=== PATIENT | female | born 1980 | race Caucasian/White ===

== ENCOUNTER 2022-05-02 16:19 | Emergency (ER) | payer MEDICAID ==
[2022-05-02 16:35] VITALS: BP 128/71
--- OUTSIDE RECORDS SUMMARY | 2022-05-02 16:54 | EXTERNAL MEDICAL SUMMARY RPT | Continuity of Care Document ---
:1980 Author Organization [place] Address [address] [place] [address] Phone Care Team Providers Name Role Phone Lexi Bueno Unavailable Unavailable Allergies No information. Encounters No information. Functional Status No information. Immunizations No information. Medications date description facility 2022-04-13 00:[address] [facility] 2022-04-13 00:[address] [facility] 2022-04-[address] [facility] 2022-04-13 00:[address] [facility] Problems date description facility 2022-04-13 00:00 Herpes simplex type [address] [facility] Procedures No information. Results/Labs test date author facility value unit interpret ation Result panel 1 (unknown) (no (unknown) (unknown) (no value) (units (unk nown) date) unknown) (unknown) (no (unknown) (unknown) 04/13/22 (units (unkno wn) date) unknown) (unknown) (no (unknown) (unknown) [id number] (units (unkno wn) date) unknown) (unknown) (no (unknown) (unknown) 42 year old (units (un known) date) female presents to unknown) clinic for medication review. (unknown) (no (unknown) (unknown) Age/Sex: 42 / F (units (unknown) date) Date of Service: unknown) (unknown) (no (unknown) (unknown) Allergies (units (unkn own) date) unknown) (unknown) (no (unknown) (unknown) [place], [place] (units ( unknown) date) [id number] unknown) (unknown) (no (unknown) (unknown) Anxiety (units (unkno wn) date) unknown) (unknown) (no (unknown) (unknown) Attending Dr: Angel (units (unknown) date) Jose Chen unknown) (unknown) (no (unknown) (unknown) BMI (units (unkno wn) date) 31.0-31.9,adult unknown) (unknown) (no (unknown) (unknown) Bronchitis (units (unk nown) date) unknown) (unknown) (no (unknown) (unknown) Bunion of great (units (unknown) date) toe unknown) (unknown) (no (unknown) (unknown) Cancer (units (unkno wn) date) unknown) (unknown) (no (unknown) (unknown) : 1980 (units (unknown) date) Acct:[id number] unknown) (unknown) (no (unknown) (unknown) Depression (units (unk nown) date) unknown) (unknown) (no (unknown) (unknown) Dept at (units (unkno wn) date) . unknown) (unknown) (no (unknown) (unknown) Documented By: (units (unknown) date) Angel Garcia unknown) 04/13/22 0751 (unknown) (no (unknown) (unknown) Draft (units (unkno wn) date) unknown) (unknown) (no (unknown) (unknown) Ectopic (units (unknown) date) () unknown) (unknown) (no (unknown) (unknown) Family History (units (unknown) date) (Reviewed 12/11/21 unknown) @ 16:19 by Deng Bowens DO) (unknown) (no (unknown) (unknown) Family Practice (units (unknown) date) Office Visit unknown) (unknown) (no (unknown) (unknown) Father Skin (units (un known) date) cancer unknown) (unknown) (no (unknown) (unknown) [facility] ([facility] unknown) (unknown) (no (unknown) (unknown) Grandfather (units (un known) date) Acute unknown) alcohol intoxication with alcoholism (unknown) (no (unknown) (unknown) Grandfather No (units (unknown) date) problems noted. unknown) (unknown) (no (unknown) (unknown) Grandmother (units (un known) date) unknown) Alzheimer's dementia (unknown) (no (unknown) (unknown) Grandmother No (units (unknown) date) problems noted. unknown) (unknown) (no (unknown) (unknown) Health Management (units (unknown) date) reviewed with unknown) patient: Yes (unknown) (no (unknown) (unknown) Health Management (units (unknown) date) unknown) (unknown) (no (unknown) (unknown) Herpes (2017) (units ( unknown) date) unknown) (unknown) (no (unknown) (unknown) Insomnia (units (unkno wn) date) unknown) (unknown) (no (unknown) (unknown) Intake Note: (units (u nknown) date) unknown) (unknown) (no (unknown) (unknown) Intake performed (units (unknown) date) by: Delia Dela Cruz unknown) (unknown) (no (unknown) (unknown) Intake (units (unkno wn) date) unknown) (unknown) (no (unknown) (unknown) Intake- Clincial (units (unknown) date) Staff unknown) (unknown) (no (unknown) (unknown) Kidney stones (units ( unknown) date) unknown) (unknown) (no (unknown) (unknown) 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) (unknown) (no (unknown) (unknown) [facility]: [facility] (units (unkno wn) date) unknown) (unknown) (no (unknown) (unknown) Medical History (units (unknown) date) (Reviewed 12/11/21 unknown) @ 16:19 by Deng Bowens DO) (unknown) (no (unknown) (unknown) Mother Age: 68 (units (unknown) date) Heart disease unknown) (unknown) (no (unknown) (unknown) Myocardial (units (unk nown) date) infarction unknown) (unknown) (no (unknown) (unknown) 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) (unknown) (no (unknown) (unknown) PFSH (units (unkno wn) date) unknown) (unknown) (no (unknown) (unknown) PTSD (units (unkno wn) date) (post-traumatic unknown) stress disorder) (unknown) (no (unknown) (unknown) Pain of right (units ( unknown) date) great toe unknown) (unknown) (no (unknown) (unknown) Patient: (units (unkno wn) date) Karla Sanon unknown) MR#: [id number] (unknown) (no (unknown) (unknown) Pneumonia (units (unkn own) date) unknown) (unknown) (no (unknown) (unknown) Reason For Visit (units (unknown) date) unknown) (unknown) (no (unknown) (unknown) Right hip pain (units (unknown) date) unknown) (unknown) (no (unknown) (unknown) Rosacea (1998) (units (unknown) date) unknown) (unknown) (no (unknown) (unknown) Seizures (units (unkno wn) date) unknown) (unknown) (no (unknown) (unknown) Signed By: (units (unk nown) date) unknown) (unknown) (no (unknown) (unknown) Sister No (units (unkn own) date) problems noted. unknown) (unknown) (no (unknown) (unknown) Smoking Status: (units (unknown) date) Never smoker unknown) (unknown) (no (unknown) (unknown) Sneezing and (units (u nknown) date) itchy eyes unknown) (unknown) (no (unknown) (unknown) Social History (units (unknown) date) unknown) (unknown) (no (unknown) (unknown) Surgical History (units (unknown) date) (Reviewed 12/11/21 unknown) @ 16:19 by Deng Bowens DO) (unknown) (no (unknown) (unknown) Tachycardia (units (un known) date) unknown) (unknown) (no (unknown) (unknown) This note may (units ( unknown) date) have been all or unknown) partially generated using voice recognition (unknown) (no (unknown) (unknown) Tobacco + (units (unkn own) date) Substance Use unknown) (unknown) (no (unknown) (unknown) Tobacco Status (units (unknown) date) unknown) (unknown) (no (unknown) (unknown) Traumatic brain (units (unknown) date) injury unknown) (unknown) (no (unknown) (unknown) Unconscious (units (un known) date) unknown) (unknown) (no (unknown) (unknown) Vaginal delivery (units (unknown) date) (09/19/19) unknown) (unknown) (no (unknown) (unknown) Visit Reasons: Rx (units (unknown) date) Review-*perterson unknown) pt (unknown) (no (unknown) (unknown) Vomit (units (unkno wn) date) unknown) (unknown) (no (unknown) (unknown) [place] teeth (units (u nknown) date) removed unknown) (unknown) (no (unknown) (unknown) alcohol intake: (units (unknown) date) former unknown) (unknown) (no (unknown) (unknown) aspirin Adverse (units (unknown) date) Reaction (Verified unknown) 04/13/22 07:51) (unknown) (no (unknown) (unknown) cat dander (units (unk nown) date) Allergy unknown) (Intermediate, Verified 04/13/22 07:51) (unknown) (no (unknown) (unknown) have occurred. If (units (unknown) date) there are any unknown) questions, please contact the Medical Records (unknown) (no (unknown) (unknown) household (units (unkn own) date) members: spouse unknown) and children (unknown) (no (unknown) (unknown) latex [LATEX] (units ( unknown) date) Allergy unknown) (Intermediate, Verified 04/13/22 07:51) (unknown) (no (unknown) (unknown) marital status: (units (unknown) date) unmarried,living unknown) together (unknown) (no (unknown) (unknown) may occur. (units (unk nown) date) Occasional unknown) wrong-word or 'sound-alike' substitutions may have (unknown) (no (unknown) (unknown) nalbuphine [From (units (unknown) date) Nubain] Allergy unknown) (Severe, Verified 04/13/22 07:51) (unknown) (no (unknown) (unknown) number of (units (unkn own) date) children: 5 unknown) (unknown) (no (unknown) (unknown) occupational (units (u nknown) date) status: employed unknown) (unknown) (no (unknown) (unknown) occurred due to (units (unknown) date) the inherent unknown) limitations of voice recognition software. Please (unknown) (no (unknown) (unknown) rash (units (unkno wn) date) unknown) (unknown) (no (unknown) (unknown) read the note (units ( unknown) date) carefully and unknown) recognize, using context, where these substitutions (unknown) (no (unknown) (unknown) second hand (units (un known) date) exposure: No unknown) (unknown) (no (unknown) (unknown) software. 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 (unknown) (no (unknown) (unknown) Age/Sex: 42 / F (units (unknown) date) Date of Service: unknown) (unknown) (no (unknown) (unknown) Allergies (units (unkn own) date) unknown) (unknown) (no (unknown) (unknown) [place], [place] (units ( unknown) date) [id number] unknown) (unknown) (no (unknown) (unknown) Anxiety (units (unkno wn) date) unknown) (unknown) (no (unknown) (unknown) Assessment + Plan (units (unknown) date) unknown) (unknown) (no (unknown) (unknown) Attending Dr: Angel (units (unknown) date) Jose Wolf.Dave unknown) (unknown) (no (unknown) (unknown) BMI (units (unkno wn) date) 31.0-31.9,adult unknown) (unknown) (no (unknown) (unknown) BP 106/68 (units (unkn own) date) unknown) (unknown) (no (unknown) (unknown) Blood Pressure (units (unknown) date) Location Rt radial unknown) (unknown) (no (unknown) (unknown) Bronchitis (units (unk nown) date) unknown) (unknown) (no (unknown) (unknown) Bunion of great (units (unknown) date) toe unknown) (unknown) (no (unknown) (unknown) Cancer (units (unkno wn) date) unknown) (unknown) (no (unknown) (unknown) Chief Complaint: (units (unknown) date) med refill unknown) (unknown) (no (unknown) (unknown) : 1980 (units (unknown) date) Acct:[id number] unknown) (unknown) (no (unknown) (unknown) Depression (units (unk nown) date) unknown) (unknown) (no (unknown) (unknown) Dept at (units (unkno wn) date) . unknown) (unknown) (no (unknown) (unknown) Discontinued (units (u nknown) date) Reason: Patient no unknown) longer taking 500 mg PO BID 30 tabs 0RF (unknown) (no (unknown) (unknown) Discontinued (units (u nknown) date) unknown) (unknown) (no (unknown) (unknown) Documented By: (units (unknown) date) Angel Garcia unknown) 04/13/22 0751 (unknown) (no (unknown) (unknown) Draft (units (unkno wn) date) unknown) (unknown) (no (unknown) (unknown) Ectopic (units (unknown) date) () unknown) (unknown) (no (unknown) (unknown) Family History (units (unknown) date) (Reviewed 12/11/21 unknown) @ 16:19 by Deng Bowens DO) (unknown) (no (unknown) (unknown) Family Practice (units (unknown) date) Office Visit unknown) (unknown) (no (unknown) (unknown) Father Skin (units (un known) date) cancer unknown) (unknown) (no (unknown) (unknown) [facility] ([facility] unknown) (unknown) (no (unknown) (unknown) Grandfather (units (un known) date) Acute unknown) alcohol intoxication with alcoholism (unknown) (no (unknown) (unknown) Grandfather No (units (unknown) date) problems noted. unknown) (unknown) (no (unknown) (unknown) Grandmother (units (un known) date) unknown) Alzheimer's dementia (unknown) (no (unknown) (unknown) Grandmother No (units (unknown) date) problems noted. unknown) (unknown) (no (unknown) (unknown) Health Management (units (unknown) date) reviewed with unknown) patient: Yes (unknown) (no (unknown) (unknown) Health Management (units (unknown) date) unknown) (unknown) (no (unknown) (unknown) Herpes (2017) (units ( unknown) date) unknown) (unknown) (no (unknown) (unknown) Insomnia (units (unkno wn) date) unknown) (unknown) (no (unknown) (unknown) Intake Note: (units (u nknown) date) unknown) (unknown) (no (unknown) (unknown) Intake performed (units (unknown) date) by: Delia Dela Cruz unknown) (unknown) (no (unknown) (unknown) Intake (units (unkno wn) date) unknown) (unknown) (no (unknown) (unknown) Intake- Clincial (units (unknown) date) Staff unknown) (unknown) (no (unknown) (unknown) Kidney stones (units ( unknown) date) unknown) (unknown) (no (unknown) (unknown) 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) (unknown) (no (unknown) (unknown) Loc: [facility] (units (unkno wn) date) unknown) (unknown) (no (unknown) (unknown) Medical History (units (unknown) date) (Reviewed 12/11/21 unknown) @ 16:19 by Deng Bowens DO) (unknown) (no (unknown) (unknown) Medications (units (un known) date) unknown) (unknown) (no (unknown) (unknown) Medications: (units (u nknown) date) unknown) (unknown) (no (unknown) (unknown) Mother Age: 68 (units (unknown) date) Heart disease unknown) (unknown) (no (unknown) (unknown) Myocardial (units (unk nown) date) infarction unknown) (unknown) (no (unknown) (unknown) Notes (units (unkno wn) date) unknown) (unknown) (no (unknown) (unknown) 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) (unknown) (no (unknown) (unknown) Oxygen Delivery (units (unknown) date) Method room air unknown) (unknown) (no (unknown) (unknown) PFSH (units (unkno wn) date) unknown) (unknown) (no (unknown) (unknown) PTSD (units (unkno wn) date) (post-traumatic unknown) stress disorder) (unknown) (no (unknown) (unknown) Pain of right (units ( unknown) date) great toe unknown) (unknown) (no (unknown) (unknown) Patient: (units (unkno wn) date) Karla Sanon unknown) MR#: [id number] (unknown) (no (unknown) (unknown) Pneumonia (units (unkn own) date) unknown) (unknown) (no (unknown) (unknown) Position Sitting (units (unknown) date) unknown) (unknown) (no (unknown) (unknown) Pulse 80 (units (unkno wn) date) unknown) (unknown) (no (unknown) (unknown) Pulse Oximetry (units (unknown) date) (%) 99 unknown) (unknown) (no (unknown) (unknown) Pulse Source (units (u nknown) date) Monitor unknown) (unknown) (no (unknown) (unknown) Reason For Visit (units (unknown) date) unknown) (unknown) (no (unknown) (unknown) Right hip pain (units (unknown) date) unknown) (unknown) (no (unknown) (unknown) Rosacea (1998) (units (unknown) date) unknown) (unknown) (no (unknown) (unknown) Seizures (units (unkno wn) date) unknown) (unknown) (no (unknown) (unknown) Signed By: (units (unk nown) date) unknown) (unknown) (no (unknown) (unknown) Sister No (units (unkn own) date) problems noted. unknown) (unknown) (no (unknown) (unknown) Smoking Status: (units (unknown) date) Never smoker unknown) (unknown) (no (unknown) (unknown) Sneezing and (units (u nknown) date) itchy eyes unknown) (unknown) (no (unknown) (unknown) Social History (units (unknown) date) unknown) (unknown) (no (unknown) (unknown) Surgical History (units (unknown) date) (Reviewed 12/11/21 unknown) @ 16:19 by Deng Bowens DO) (unknown) (no (unknown) (unknown) Tachycardia (units (un known) date) unknown) (unknown) (no (unknown) (unknown) Temp 97.4 F L (units ( unknown) date) unknown) (unknown) (no (unknown) (unknown) Temp Source (units (un known) date) Temporal Artery unknown) Scan (unknown) (no (unknown) (unknown) This note may (units ( unknown) date) have been all or unknown) partially generated using voice recognition (unknown) (no (unknown) (unknown) Tobacco + (units (unkn own) date) Substance Use unknown) (unknown) (no (unknown) (unknown) Tobacco Status (units (unknown) date) unknown) (unknown) (no (unknown) (unknown) Traumatic brain (units (unknown) date) injury unknown) (unknown) (no (unknown) (unknown) Unconscious (units (un known) date) unknown) (unknown) (no (unknown) (unknown) Vaginal delivery (units (unknown) date) (09/19/19) unknown) (unknown) (no (unknown) (unknown) Visit Reasons: Rx (units (unknown) date) Review-*perterson unknown) pt (unknown) (no (unknown) (unknown) Vitals (units (unkno wn) date) unknown) (unknown) (no (unknown) (unknown) Vomit (units (unkno wn) date) unknown) (unknown) (no (unknown) (unknown) Weight 212 lb (units ( unknown) date) unknown) (unknown) (no (unknown) (unknown) [place] teeth (units (u nknown) date) removed unknown) (unknown) (no (unknown) (unknown) acyclovir 400 mg (units (unknown) date) tablet 400 mg PO unknown) BID 04/13/22 [History Confirmed 04/13/22] (unknown) (no (unknown) (unknown) alcohol intake: (units (unknown) date) former unknown) (unknown) (no (unknown) (unknown) aspirin Adverse (units (unknown) date) Reaction (Verified unknown) 04/13/22 07:51) (unknown) (no (unknown) (unknown) cat dander (units (unk nown) date) Allergy unknown) (Intermediate, Verified 04/13/22 07:51) (unknown) (no (unknown) (unknown) have occurred. If (units (unknown) date) there are any unknown) questions, please contact the Medical Records (unknown) (no (unknown) (unknown) household (units (unkn own) date) members: spouse unknown) and children (unknown) (no (unknown) (unknown) latex [LATEX] (units ( unknown) date) Allergy unknown) (Intermediate, Verified 04/13/22 07:51) (unknown) (no (unknown) (unknown) lorazepam 1 mg (units (unknown) date) tablet 1 mg PO unknown) DAILY PRN 04/13/22 [History Confirmed 04/13/22] (unknown) (no (unknown) (unknown) marital status: (units (unknown) date) unmarried,living unknown) together (unknown) (no (unknown) (unknown) may occur. (units (unk nown) date) Occasional unknown) wrong-word or 'sound-alike' substitutions may have (unknown) (no (unknown) (unknown) minocycline 50 mg (units (unknown) date) capsule 50 mg PO unknown) DAILY 04/13/22 [History Confirmed 04/13/22] (unknown) (no (unknown) (unknown) nalbuphine [From (units (unknown) date) Nubain] Allergy unknown) (Severe, Verified 04/13/22 07:51) (unknown) (no (unknown) (unknown) naproxen (units (unkno wn) date) unknown) (unknown) (no (unknown) (unknown) number of (units (unkn own) date) children: 5 unknown) (unknown) (no (unknown) (unknown) occupational (units (u nknown) date) status: employed unknown) (unknown) (no (unknown) (unknown) occurred due to (units (unknown) date) the inherent unknown) limitations of voice recognition software. Please (unknown) (no (unknown) (unknown) phentermine 30 mg (units (unknown) date) capsule 30 mg PO unknown) DAILY 04/13/22 [History Confirmed 04/13/22] (unknown) (no (unknown) (unknown) rash (units (unkno wn) date) unknown) (unknown) (no (unknown) (unknown) read the note (units ( unknown) date) carefully and unknown) recognize, using context, where these substitutions (unknown) (no (unknown) (unknown) second hand (units (un known) date) exposure: No unknown) (unknown) (no (unknown) (unknown) software. 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: (unknown) (no (unknown) (unknown) (2) BMI (units (unkno wn) date) 31.0-31.9,adult: unknown) (unknown) (no (unknown) (unknown) (3) Anxiety: (units (u nknown) date) unknown) (unknown) (no (unknown) (unknown) (4) Menorrhagia: (units (unknown) date) unknown) (unknown) (no (unknown) (unknown) (5) Adult acne: (units (unknown) date) unknown) (unknown) (no (unknown) (unknown) (6) Right hip (units ( unknown) date) pain: unknown) (unknown) (no (unknown) (unknown) - Excessive and (units (unknown) date) frequent unknown) menstruation with regular cycle, Z68.31 - Body mass (unknown) (no (unknown) (unknown) -discussed that (units (unknown) date) her long-term unknown) goals to be fit and not skinny. 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 If she is losing weight we will continue the (unknown) (no (unknown) (unknown) -trial of (units (unkn own) date) phentermine. unknown) Discussed side effect profile. (unknown) (no (unknown) (unknown) 04/13/22 0830 (units ( unknown) date) unknown) (unknown) (no (unknown) (unknown) 04/13/22 (units (unkno wn) date) unknown) (unknown) (no (unknown) (unknown) 04/13/22] (units (unkn own) date) unknown) (unknown) (no (unknown) (unknown) [id number] (units (unkno wn) date) unknown) (unknown) (no (unknown) (unknown) 08:01 (units (unkno wn) date) unknown) (unknown) (no (unknown) (unknown) 1. No recent (units (u nknown) date) outbreak. She is unknown) using treatment doses when needed. If she does (unknown) (no (unknown) (unknown) 1. Patient states (units (unknown) date) that she has a unknown) history of anxiety. Previously she was on (unknown) (no (unknown) (unknown) 2. History of (units ( unknown) date) acne. 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 Long (units (unkno wn) date) discussion about unknown) diet and exercise goals. Advised she can not drink or (unknown) (no (unknown) (unknown) 3. 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 She takes acyclovir as needed for (unknown) (no (unknown) (unknown) 3. She is using (units (unknown) date) the lorazepam as unknown) needed only. Her controlled substance report (unknown) (no (unknown) (unknown) 31.9, adult (units (un known) date) unknown) (unknown) (no (unknown) (unknown) 4. Discussed (units (u nknown) date) treatment options. unknown) Trial of continuous control. (unknown) (no (unknown) (unknown) 4. She states (units ( unknown) date) that since her unknown) last she has had very heavy periods. She (unknown) (no (unknown) (unknown) 42 year old (units (un known) date) female presents to unknown) clinic for medication review. (unknown) (no (unknown) (unknown) 5. Discussed side (units (unknown) date) effect profile. unknown) Continue current medication (unknown) (no (unknown) (unknown) 5. She states (units ( unknown) date) that she is having unknown) a difficult time losing her weight. (unknown) (no (unknown) (unknown) 6. Reviewed her (units (unknown) date) x-ray. Mild unknown) arthritic changes only. Discussed the importance (unknown) (no (unknown) (unknown) 6. She also has (units (unknown) date) had chronic right unknown) hip pain since an injury many years ago. She (unknown) (no (unknown) (unknown) Age/Sex: 42 / F (units (unknown) date) Date of Service: unknown) (unknown) (no (unknown) (unknown) Allergies (units (unkn own) date) unknown) (unknown) (no (unknown) (unknown) Allergies: (units (unk nown) date) Reviewed unknown) (unknown) (no (unknown) (unknown) [place], [place] (units ( unknown) date) [id number] unknown) (unknown) (no (unknown) (unknown) Anxiety (units (unkno wn) date) unknown) (unknown) (no (unknown) (unknown) Assessment + Plan (units (unknown) date) unknown) (unknown) (no (unknown) (unknown) Attending Dr: Angel (units (unknown) date) Jose Chen unknown) (unknown) (no (unknown) (unknown) BMI (units (unkno wn) date) 31.0-31.9,adult unknown) (unknown) (no (unknown) (unknown) BP 106/68 (units (unkn own) date) unknown) (unknown) (no (unknown) (unknown) Blood Pressure (units (unknown) date) Location Rt radial unknown) (unknown) (no (unknown) (unknown) Bronchitis (units (unk nown) date) unknown) (unknown) (no (unknown) (unknown) Bunion of great (units (unknown) date) toe unknown) (unknown) (no (unknown) (unknown) CHEST: Normal (units ( unknown) date) respiratory effort unknown) (unknown) (no (unknown) (unknown) Cancer (units (unkno wn) date) unknown) (unknown) (no (unknown) (unknown) Cardiovascular: (units (unknown) date) Negative.? unknown) (unknown) (no (unknown) (unknown) Chief Complaint: (units (unknown) date) med refill unknown) (unknown) (no (unknown) (unknown) Complete Blood (units (unknown) date) Count AUTO DIFF unknown) Today F41.9 - Anxiety disorder, unspecified, (unknown) (no (unknown) (unknown) Comprehensive (units (u nknown) date) Metabolic Panel unknown) Today F41.9 - Anxiety disorder, unspecified, N92.0 (unknown) (no (unknown) (unknown) Constitutional: (units (unknown) date) Negative.? unknown) (unknown) (no (unknown) (unknown) : 1980 (units (unknown) date) Acct:[id number] unknown) (unknown) (no (unknown) (unknown) Depression (units (unk nown) date) unknown) (unknown) (no (unknown) (unknown) Dept at (units (unkno wn) date) . unknown) (unknown) (no (unknown) (unknown) Documented By: (units (unknown) date) Angel Garcia unknown) 04/13/22 0751 (unknown) (no (unknown) (unknown) EYES: PERRL, EOMI (units (unknown) date) and nonicteric unknown) (unknown) (no (unknown) (unknown) Ectopic (units (unknown) date) () unknown) (unknown) (no (unknown) (unknown) Endocrine: (units (unk nown) date) Negative.? unknown) (unknown) (no (unknown) (unknown) Excessive and (units ( unknown) date) frequent unknown) menstruation with regular cycle (unknown) (no (unknown) (unknown) Excessive and (units (u nknown) date) frequent unknown) menstruation with regular cycle, Z68.31 - Body mass index (unknown) (no (unknown) (unknown) Family History (units (unknown) date) (Reviewed 12/11/21 unknown) @ 16:19 by Deng Bowens DO) (unknown) (no (unknown) (unknown) Family Practice (units (unknown) date) Office Visit unknown) (unknown) (no (unknown) (unknown) Father Skin (units (un known) date) cancer unknown) (unknown) (no (unknown) (unknown) [facility]) (unknown) (no (unknown) (unknown) GENERAL: Well (units ( unknown) date) developed, well unknown) nourished.? Cooperative with exam.? Patient is in (unknown) (no (unknown) (unknown) Gastrointestinal: (units (unknown) date) Negative.? unknown) (unknown) (no (unknown) (unknown) Genitourinary: (units (unknown) date) Negative.? unknown) (unknown) (no (unknown) (unknown) Grandfather (units (un known) date) Acute unknown) alcohol intoxication with alcoholism (unknown) (no (unknown) (unknown) Grandfather No (units (unknown) date) problems noted. unknown) (unknown) (no (unknown) (unknown) Grandmother (units (un known) date) unknown) Alzheimer's dementia (unknown) (no (unknown) (unknown) Grandmother No (units (unknown) date) problems noted. 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 (unknown) (no (unknown) (unknown) Health Management (units (unknown) date) reviewed with unknown) patient: Yes (unknown) (no (unknown) (unknown) Health Management (units (unknown) date) unknown) (unknown) (no (unknown) (unknown) Hemoglobin A1C% w (units (unknown) date) Est Avg Glu Today unknown) F41.9 - Anxiety disorder, unspecified, N92.0 (unknown) (no (unknown) (unknown) Herpes (2017) (units ( unknown) date) unknown) (unknown) (no (unknown) (unknown) I reviewed the (units (unknown) date) patient's Past unknown) Medical History, Problem List, Medications and (unknown) (no (unknown) (unknown) Insomnia (units (unkno wn) date) unknown) (unknown) (no (unknown) (unknown) Intake Note: (units (u nknown) date) unknown) (unknown) (no (unknown) (unknown) Intake performed (units (unknown) date) by: Delia Dela Cruz unknown) (unknown) (no (unknown) (unknown) Intake (units (unkno wn) date) unknown) (unknown) (no (unknown) (unknown) Intake- Clincial (units (unknown) date) Staff unknown) (unknown) (no (unknown) (unknown) Kidney stones (units ( unknown) date) unknown) (unknown) (no (unknown) (unknown) 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 unknown) (unknown) (no (unknown) (unknown) Medical History (units (unknown) date) (Updated 04/13/22 unknown) @ 08:07 by Angel Garcia DO) (unknown) (no (unknown) (unknown) Medications (units (un known) date) unknown) (unknown) (no (unknown) (unknown) Medications: (units (u nknown) date) Reconciled unknown) (unknown) (no (unknown) (unknown) Medications: (units (u nknown) date) unknown) (unknown) (no (unknown) (unknown) Menorrhagia type: (units (unknown) date) with regular cycle unknown) Qualified Code(s): N92.0 (unknown) (no (unknown) (unknown) Mother Age: 68 (units (unknown) date) Heart disease unknown) (unknown) (no (unknown) (unknown) Myocardial (units (unk nown) date) infarction unknown) (unknown) (no (unknown) (unknown) N92.0 - Excessive (units (unknown) date) and frequent unknown) menstruation with regular cycle, Z68.31 - Body (unknown) (no (unknown) (unknown) NECK: Full range (units (unknown) date) of motion, unknown) lymphadenopathy absent, supple (unknown) (no (unknown) (unknown) NEURO EXAM: Alert (units (unknown) date) and oriented x 3.? unknown) (unknown) (no (unknown) (unknown) Neurological: (units ( unknown) date) Negative.? unknown) (unknown) (no (unknown) (unknown) New (units (unkno wn) date) unknown) (unknown) (no (unknown) (unknown) Note (units (unkno wn) date) unknown) (unknown) (no (unknown) (unknown) Note: (units (unkno wn) date) unknown) (unknown) (no (unknown) (unknown) Notes (units (unkno wn) date) unknown) (unknown) (no (unknown) (unknown) 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) (unknown) (no (unknown) (unknown) Objective: (units (unk nown) date) unknown) (unknown) (no (unknown) (unknown) Orders (units (unkno wn) date) unknown) (unknown) (no (unknown) (unknown) Orders: (units (unkno wn) date) unknown) (unknown) (no (unknown) (unknown) Oxygen Delivery (units (unknown) date) Method room air unknown) (unknown) (no (unknown) (unknown) PFSH (units (unkno wn) date) unknown) (unknown) (no (unknown) (unknown) PSYCH: judgement (units (unknown) date) normal, unknown) orientation normal, affect/mood normal and memory (unknown) (no (unknown) (unknown) PTSD (units (unkno wn) date) (post-traumatic unknown) stress disorder) (unknown) (no (unknown) (unknown) Pain of right (units ( unknown) date) great toe unknown) (unknown) (no (unknown) (unknown) Patient is here (units (unknown) date) to address unknown) multiple issues. (unknown) (no (unknown) (unknown) Patient: (units (unkno wn) date) Karla Sanon K unknown) MR#: [id number] (unknown) (no (unknown) (unknown) Plan (units (unkno wn) date) unknown) (unknown) (no (unknown) (unknown) Pneumonia (units (unkn own) date) unknown) (unknown) (no (unknown) (unknown) Position Sitting (units (unknown) date) unknown) (unknown) (no (unknown) (unknown) Pulse 80 (units (unkno wn) date) unknown) (unknown) (no (unknown) (unknown) Pulse Oximetry (units (unknown) date) (%) 99 unknown) (unknown) (no (unknown) (unknown) Pulse Source (units (u nknown) date) Monitor unknown) (unknown) (no (unknown) (unknown) Qualifiers: (units (un known) date) unknown) (unknown) (no (unknown) (unknown) Reason For Visit (units (unknown) date) unknown) (unknown) (no (unknown) (unknown) Respiratory: (units (u nknown) date) Negative.? unknown) (unknown) (no (unknown) (unknown) Review of (units (unkn own) date) Systems: unknown) (unknown) (no (unknown) (unknown) Right hip pain (units (unknown) date) unknown) (unknown) (no (unknown) (unknown) Rosacea (1998) (units (unknown) date) unknown) (unknown) (no (unknown) (unknown) SKIN:? No rashes (units (unknown) date) on face or arms. unknown) (unknown) (no (unknown) (unknown) Seizures (units (unkno wn) date) unknown) (unknown) (no (unknown) (unknown) She has taken (units ( unknown) date) phentermine in the unknown) past without any adverse side effects. She (unknown) (no (unknown) (unknown) Signed By: (units (unk nown) date) <Electronically unknown) signed by Angel Garcia> (unknown) (no (unknown) (unknown) Signed (units (unkno wn) date) unknown) (unknown) (no (unknown) (unknown) Sister No (units (unkn own) date) problems noted. unknown) (unknown) (no (unknown) (unknown) Smoking Status: (units (unknown) date) Never smoker unknown) (unknown) (no (unknown) (unknown) Sneezing and (units (u nknown) date) itchy eyes unknown) (unknown) (no (unknown) (unknown) Social History (units (unknown) date) (including tobacco unknown) use status). (unknown) (no (unknown) (unknown) Social History (units (unknown) date) unknown) (unknown) (no (unknown) (unknown) Status: Acute (units ( unknown) date) unknown) (unknown) (no (unknown) (unknown) Status: Chronic (units (unknown) date) unknown) (unknown) (no (unknown) (unknown) Status: None (units (u nknown) date) unknown) (unknown) (no (unknown) (unknown) Subjective: (units (un known) date) unknown) (unknown) (no (unknown) (unknown) Surgical History (units (unknown) date) (Reviewed 12/11/21 unknown) @ 16:19 by Deng Bowens DO) (unknown) (no (unknown) (unknown) TSH w/ Reflex to (units (unknown) date) FT4 Today F41.9 - unknown) Anxiety disorder, unspecified, N92.0 (unknown) (no (unknown) (unknown) Tachycardia (units (un known) date) unknown) (unknown) (no (unknown) (unknown) Temp 97.4 F L (units ( unknown) date) unknown) (unknown) (no (unknown) (unknown) Temp Source (units (un known) date) Temporal Artery unknown) Scan (unknown) (no (unknown) (unknown) This note may (units ( unknown) date) have been all or unknown) partially generated using voice recognition (unknown) (no (unknown) (unknown) Tobacco + (units (unkn own) date) Substance Use unknown) (unknown) (no (unknown) (unknown) Tobacco Status (units (unknown) date) unknown) (unknown) (no (unknown) (unknown) Traumatic brain (units (unknown) date) injury unknown) (unknown) (no (unknown) (unknown) Unconscious (units (un known) date) unknown) (unknown) (no (unknown) (unknown) Vaginal delivery (units (unknown) date) (09/19/19) unknown) (unknown) (no (unknown) (unknown) Visit Reasons: Rx (units (unknown) date) Review-*perterson unknown) pt (unknown) (no (unknown) (unknown) Vital Signs: (units (u nknown) date) Reviewed unknown) (unknown) (no (unknown) (unknown) Vitals (units (unkno wn) date) unknown) (unknown) (no (unknown) (unknown) Voice recognition (units (unknown) date) software was used unknown) in the creation of this note. There may be (unknown) (no (unknown) (unknown) Vomit (units (unkno wn) date) unknown) (unknown) (no (unknown) (unknown) Weight 212 lb (units ( unknown) date) unknown) (unknown) (no (unknown) (unknown) Wellbutrin and (units (unknown) date) BuSpar. This made unknown) her symptoms worse and she had undesirable (unknown) (no (unknown) (unknown) [place] teeth (units (u nknown) date) removed unknown) (unknown) (no (unknown) (unknown) [BMI] 31.0-31.9, (units (unknown) date) adult unknown) (unknown) (no (unknown) (unknown) active to help (units (unknown) date) with weight loss. unknown) She would like a refill of her medication. No (unknown) (no (unknown) (unknown) acute (units (unkno wn) date) breakthrough. When unknown) the are times when she is getting multiple break out (unknown) (no (unknown) (unknown) acyclovir 400 mg (units (unknown) date) PO BID 60 tabs unknown) 11RF B00.9 - Herpesviral infection, unspecified (unknown) (no (unknown) (unknown) acyclovir 400 mg (units (unknown) date) tablet 400 mg PO unknown) BID #60 tabs 04/13/22 [Rx Confirmed 04/13/22] (unknown) (no (unknown) (unknown) alcohol intake: (units (unknown) date) former unknown) (unknown) (no (unknown) (unknown) aspirin Adverse (units (unknown) date) Reaction (Verified unknown) 04/13/22 07:51) (unknown) (no (unknown) (unknown) control (units ( unknown) date) option. unknown) (unknown) (no (unknown) (unknown) bleeding. She (units ( unknown) date) soaks through many unknown) pads and has to wear adult brief. She still (unknown) (no (unknown) (unknown) calories. Must (units (unknown) date) work on regular unknown) exercise program. (unknown) (no (unknown) (unknown) cat dander (units (unk nown) date) Allergy unknown) (Intermediate, Verified 04/13/22 07:51) (unknown) (no (unknown) (unknown) drospirenone 3 (units ( unknown) date) mg-ethinyl unknown) estradiol 0.02 mg tablet (MINI (28)) 1 tab PO DAILY #84 (unknown) (no (unknown) (unknown) drospirenone-ethi (units (unknown) date) nyl estradiol unknown) 3-0.02 mg (MINI (28)) 1 tab PO DAILY 84 tabs 3RF (unknown) (no (unknown) (unknown) find a a (units (unkno wn) date) different unknown) medication to help her symptoms. (unknown) (no (unknown) (unknown) for prevention. (units (unknown) date) She states that unknown) she has tried creams and other topical (unknown) (no (unknown) (unknown) frequent (units (unkno wn) date) menstruation with unknown) regular cycle, Z68.31 - Body mass index [BMI] 31.0 (unknown) (no (unknown) (unknown) had an x-ray that (units (unknown) date) she would like to unknown) review. (unknown) (no (unknown) (unknown) has a 4-5 day (units ( unknown) date) cycle. No unknown) significant abdominal pain or cramping. She is had 3 (unknown) (no (unknown) (unknown) have multiple (units ( unknown) date) outbreaks we can unknown) go back to prophylactic dosing. (unknown) (no (unknown) (unknown) have occurred. If (units (unknown) date) there are any unknown) questions, please contact the Medical Records (unknown) (no (unknown) (unknown) household (units (unkn own) date) members: spouse unknown) and children (unknown) (no (unknown) (unknown) index [BMI] (units (un known) date) 31.0-31.9, adult unknown) (unknown) (no (unknown) (unknown) is not (units (unkno wn) date) recommended. If unknown) she is using the medication regularly we will have to (unknown) (no (unknown) (unknown) latex [LATEX] (units ( unknown) date) Allergy unknown) (Intermediate, Verified 04/13/22 07:51) (unknown) (no (unknown) (unknown) lorazepam 1 mg (units (unknown) date) tablet 1 mg PO unknown) DAILY PRN anxiety #30 tabs 04/13/22 [Rx Confirmed (unknown) (no (unknown) (unknown) lorazepam (units (unkn own) date) unknown) (unknown) (no (unknown) (unknown) marital status: (units (unknown) date) unmarried,living unknown) together (unknown) (no (unknown) (unknown) mass index [BMI] (units (unknown) date) 31.0-31.9, adult unknown) (unknown) (no (unknown) (unknown) may occur. (units (unk nown) date) Occasional unknown) wrong-word or 'sound-alike' substitutions may have (unknown) (no (unknown) (unknown) medication. If (units (unknown) date) not then we will unknown) stop the medication. (unknown) (no (unknown) (unknown) medications that (units (unknown) date) caused undesirable unknown) side effects. She does have some sun (unknown) (no (unknown) (unknown) minocycline 50 mg (units (unknown) date) PO DAILY 30 caps unknown) 11RF (unknown) (no (unknown) (unknown) minocycline 50 mg (units (unknown) date) capsule 50 mg PO unknown) DAILY #30 caps 04/13/22 [Rx Confirmed (unknown) (no (unknown) (unknown) must administer 2 (units (unknown) date) hours after unknown) breakfast 30 mg PO DAILY 30 caps 0RF (unknown) (no (unknown) (unknown) nalbuphine [From (units (unknown) date) [place]] Allergy unknown) (Severe, Verified 04/13/22 07:51) (unknown) (no (unknown) (unknown) no apparent (units (un known) date) distress. unknown) (unknown) (no (unknown) (unknown) normal (units (unkno wn) date) unknown) (unknown) (no (unknown) (unknown) number of (units (unkn own) date) children: 5 unknown) (unknown) (no (unknown) (unknown) occupational (units (u nknown) date) status: employed unknown) (unknown) (no (unknown) (unknown) occurred due to (units (unknown) date) the inherent unknown) limitations of voice recognition software. Please (unknown) (no (unknown) (unknown) of regular (units (unk nown) date) activity, weight unknown) loss to help with chronic issues. She can use NSAID (unknown) (no (unknown) (unknown) period of time (units (unknown) date) her symptoms unknown) worsened. No adverse side effects otherwise. (unknown) (no (unknown) (unknown) phentermine 30 mg (units (unknown) date) capsule 30 mg PO unknown) DAILY #30 caps 04/13/22 [Rx Confirmed (unknown) (no (unknown) (unknown) phentermine (units (un known) date) unknown) (unknown) (no (unknown) (unknown) previous IUD (units (u nknown) date) which she did not unknown) tolerate well. She does not want an implantable (unknown) (no (unknown) (unknown) previous adverse (units (unknown) date) side effects. She unknown) states that it does not make her anxiety or (unknown) (no (unknown) (unknown) rash (units (unkno wn) date) unknown) (unknown) (no (unknown) (unknown) read the note (units ( unknown) date) carefully and unknown) recognize, using context, where these substitutions (unknown) (no (unknown) (unknown) s and Tylenol as (units (unknown) date) needed pain. unknown) (unknown) (no (unknown) (unknown) second hand (units (un known) date) exposure: No unknown) (unknown) (no (unknown) (unknown) sensitivity on (units (unknown) date) the minocycline unknown) but she states any time she stops it for any (unknown) (no (unknown) (unknown) she does take it (units (unknown) date) prophylactically. unknown) Currently she is not had a recent break out. (unknown) (no (unknown) (unknown) shut her mind (units ( unknown) date) off. Her last unknown) prescription was prior to her . She (unknown) (no (unknown) (unknown) side effects. She (units (unknown) date) is been taking unknown) lorazepam as needed mainly at night to help (unknown) (no (unknown) (unknown) sleep worse when (units (unknown) date) she was taking it. unknown) (unknown) (no (unknown) (unknown) software. 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 (unknown) (no (unknown) (unknown) states that she (units (unknown) date) had a tubal unknown) ligation. As of June she has had very heavy (unknown) (no (unknown) (unknown) substance use (units ( unknown) date) type: does not use unknown) (unknown) (no (unknown) (unknown) supports this. (units (unknown) date) Discussed that unknown) using lorazepam regularly to control the anxiety (unknown) (no (unknown) (unknown) tabs 04/13/22 [Rx (units (unknown) date) Confirmed unknown) 04/13/22] (unknown) (no (unknown) (unknown) to last 1 month 1 (units (unknown) date) mg PO DAILY PRN 30 unknown) tabs 5RF anxiety (unknown) (no (unknown) (unknown) typographical (units ( unknown) date) errors as a unknown) result. Result panel 4 (unknown) (no date) (unknown) (unknown) 0 /ul (unkn own) (unknown) (no date) (unknown) (unknown) 0.6 % (unkn own) (unknown) (no date) (unknown) (unknown) 100 /ul (unkn own) (unknown) (no date) (unknown) (unknown) 12.0 % (unkn own) (unknown) (no date) (unknown) (unknown) 13.1 g/dl (unkn own) (unknown) (no date) (unknown) (unknown) 15.1 % (unkn own) (unknown) (no date) (unknown) (unknown) 1700 /ul (unkn own) (unknown) (no date) (unknown) (unknown) 2.1 % (unkn own) (unknown) (no date) (unknown) (unknown) 201 x10 3/ul (unkn own) (unknown) (no date) (unknown) (unknown) 27.2 % (unkn own) (unknown) (no date) (unknown) (unknown) 28.0 pg (unkn own) (unknown) (no date) (unknown) (unknown) 32.8 % (unkn own) (unknown) (no date) (unknown) (unknown) 3500 /ul (unkn own) (unknown) (no date) (unknown) (unknown) 4.69 x10 6/ul (unkn own) (unknown) (no date) (unknown) (unknown) 40.0 % (unkn own) (unknown) (no date) (unknown) (unknown) 58.1 % (unkn own) (unknown) (no date) (unknown) (unknown) 6.1 x10 3/ul (unkn own) (unknown) (no date) (unknown) (unknown) 700 /ul (unkn own) (unknown) (no date) (unknown) (unknown) 85.4 fl (unkn own) Result panel 5 (unknown) (no date) (unknown) (unknown) 5.4 % (unkn own) (unknown) (no date) (unknown) (unknown) 5.4 % (unkn own) Result panel 6 (unknown) (no date) (unknown) (unknown) > 60 ml/min (unkn own) (unknown) (no date) (unknown) (unknown) > 60 ml/min (unkn own) (unknown) (no date) (unknown) (unknown) 0.5 mg/dl (unkn own) (unknown) (no date) (unknown) (unknown) 0.83 mg/dl (unkn own) (unknown) (no date) (unknown) (unknown) 1.3 (units unknown) (unknown) (unknown) (no date) (unknown) (unknown) 106 mmol/l (unkn own) (unknown) (no date) (unknown) (unknown) 137 mmol/l (unkn own) (unknown) (no date) (unknown) (unknown) 172 mg/dl (unkn own) (unknown) (no date) (unknown) (unknown) 172 mg/dl (unkn own) (unknown) (no date) (unknown) (unknown) 18 iu/l (unkn own) (unknown) (no date) (unknown) (unknown) 19 mg/dl (unkn own) (unknown) (no date) (unknown) (unknown) 22.9 (units unknown) (unknown) (unknown) (no date) (unknown) (unknown) 23 iu/l (unkn own) (unknown) (no date) (unknown) (unknown) 24 mmol/l (unkn own) (unknown) (no date) (unknown) (unknown) 240 mg/dl (unkn own) (unknown) (no date) (unknown) (unknown) 240 mg/dl (unkn own) (unknown) (no date) (unknown) (unknown) 3.3 g/dl (unkn own) (unknown) (no date) (unknown) (unknown) 4.2 g/dl (unkn own) (unknown) (no date) (unknown) (unknown) 4.3 mmol/l (unkn own) (unknown) (no date) (unknown) (unknown) 57 mg/dl (unkn own) (unknown) (no date) (unknown) (unknown) 57 mg/dl (unkn own) (unknown) (no date) (unknown) (unknown) 57 mg/dl (unkn own) (unknown) (no date) (unknown) (unknown) 57 mg/dl (unkn own) (unknown) (no date) (unknown) (unknown) 7.5 g/dl (unkn own) (unknown) (no date) (unknown) (unknown) 72 u/l (unkn own) (unknown) (no date) (unknown) (unknown) 8.6 mg/dl (unkn own) (unknown) (no date) (unknown) (unknown) 87 mg/dl (unkn own) (unknown) (no date) (unknown) (unknown) 87 mg/dl (unkn own) Result panel 7 (unknown) (no date) (unknown) (unknown) 1.44 uiu/ml (unkn own) Social History date description facility 2022-04-13 00:00 Never smoked tobacco ([facility] Vital Signs date measurement value units 2022-04-13 00:00 BP_diastolic 68 mmHg 2022-04-13 00:00 BP_systolic 106 mmHg 2022-04-13 00:00 heart_rate 80 /min 2022-04-13 00:00 o2_saturation 99 % 2022-04-13 00:00 temperature_metric 36.33 C 2022-04-13 00:00 temperature_standard 97.4 F 2022-04-13 00:00 weight_metric 96.16 kg 2022-04-13 00:00 weight_standard 212 lb
--- NOTE | 2022-05-02 16:59 | ED Physician Documentation ---
PD HPI OPHTHO - Stated complaint Stated Complaint: EYE PAIN - Chief complaint Chief Complaint: Heent - History of Present Illness Location: Right Quality / character: Burning Associated symptoms: Redness, Tearing. No: Swelling, Discharge, FB sensation, Photophobia, Double vision, Decreased vision, Headache Contributing factors: Wears contacts - Additional information Additional information: This is a 42-year-old female who presents with right eye redness and irritation. She noticed last night. It is somewhat itchy, burning, no foreign body sensation, no change in vision Or difficulty moving eye or sensitivity to light. She denies any purulent drainage, no fever chills, no recent URI symptoms. 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 She did take out her contacts after she noted the redness last night. She has had similar issue on the left side in the past which resolved quickly with antibiotics. 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 : None HEENT: Chronic vision loss Psych: None Musculoskeletal: None Derm: Rosacea - Past Surgical History Past Surgical History: Yes /POT FLUXER: Tubal ligation - Present Medications Home Medications: Ambulatory Orders Medication Instructions Recorded Confirmed Loryna(28) 1 tab ORAL DAILY 05/02/22 05/02/22 Minocycline HCl [Solodyn] 50 mg PO DAILY 05/02/22 05/02/22 Ofloxacin 0.3% Ophth Drops 2 drops RIGHTEYE Q4H 7 Days #5 ml 05/02/22 [Ocuflox 0.3% Ophth Drops] Phentermine HCl 30 mg PO DAILY 05/02/22 05/02/22 - Allergies Allergies/Adverse Reactions: Allergies Allergy/AdvReac Type Severity Reaction Status Date / Time No Known Drug Allergies Allergy Verified 05/02/22 16:35 - Social History Does the pt smoke?: No Smoking Status: Never smoker Does the pt drink ETOH?: Yes Does the pt have substance abuse?: No - Immunizations Immunizations are current?: No PD ED PE NORMAL - Vitals Vital signs reviewed: Yes - General General: Alert and oriented X 3, No acute distress, Well developed/nourished - HEENT HEENT: Atraumatic, PERRL, EOMI, Moist mucous membranes, Pharynx benign, Other (Right INR mild scleral redness and tearing, no purulent drainage, no lid swelling or erythema) Results - Vitals Vitals: Vital Signs - 24 hr 05/02/22 16:31 Temperature 36.5 C Heart Rate 78 Respiratory 16 Rate Blood Pressure 128/71 O2 Saturation 99 Oxygen O2 Source Room air PD Medical Decision Making - ED course Complexity details: considered differential, d/w patient ED course: This is a 42-year-old female who presents with right eye redness. She is a contact lens wearer. Differentials considered included viral, allergic or bacterial conjunctivitis, uveitis, or other eye infection. In discussion with patient, she has no history of uveitis or rheumatologic disease and is at risk for conjunctivitis given her workplace. She has already taken out her contact lenses and advised her to keep them out until symptoms completely resolved. She should start a new pack of contacts at that time and ensure that her contact lens case is thoroughly cleaned. She will be placed on ofloxacin given her history of contact lens use. Supportive measures reviewed andReturn precautions reviewed in detail with the patient. Departure - Departure Disposition: 01 Home, Self Care Clinical Impression: Conjunctivitis Qualifiers: Conjunctivitis type: acute Acute conjunctivitis type: unspecified Laterality: right Qualified Code(s): H10.31 - Unspecified acute conjunctivitis, right eye Condition: Good Instructions: ED Conjunctivitis Nonspecific Prescriptions: Ofloxacin 0.3% Ophth Drops [Ocuflox 0.3% Ophth Drops] 2 drops RIGHTEYE Q4H 7 Days #5 ml Comments: Please continue warm compress and start antibiotic drops for your eye. If you have vision changes, purulent drainage, increased pain or other new concerns please return to the ER.
== END 2022-05-02 17:26 | disposition home or self-care (01) ==
LOC: ED 16:19
DX: H10.31 Unspecified acute conjunctivitis, right eye (principal)
CPT/HCPCS: 99282; 99283

== ENCOUNTER 2022-09-15 18:04 | Emergency (ER) | payer MEDICAID ==
--- NOTE | 2022-09-15 18:31 | ED Physician Documentation ---
PD HPI OPHTHO - Stated complaint Stated Complaint: L EYE PX - Chief complaint Chief Complaint: Heent - History obtained from History obtained from: Patient - History of Present Illness Timing - onset: Last night Timing - duration: Days (1) Timing - details: Gradual onset, Still present Location: Left Quality / character: Aching, Sharp Associated symptoms: Redness, Swelling, Tearing, Discharge, FB sensation Contributing factors: Wears contacts, Other (used makeup that she last used when she had an infection) Similar symptoms before: Diagnosis (bacterial conjunctivitis) Recently seen: Not recently seen - Additional information Additional information: 42-year-old Karla Sanon wears contact lenses and she has developed some irritation to her left eye after applying make-up that she last wore when she had an infection. She indicates that she does not usually wear make-up but she had her son's graduation and she went to the graduation she put some make-up on and now she has erythema and drainage from the margin of the left eye. She does have some foreign body sensation she does not have any visual acuity changes. Review of Systems Constitutional: denies: Fever Eyes: reports: Irritation. 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 - Present Medications Home Medications: Ambulatory Orders Medication Instructions Recorded Confirmed Mary(28) 1 tab ORAL DAILY 05/02/22 05/02/22 Minocycline HCl [Solodyn] 50 mg PO DAILY 05/02/22 09/15/22 Ofloxacin 0.3% Ophth Drops 2 drops RIGHTEYE Q4H 7 Days #5 ml 05/02/22 [Ocuflox 0.3% Ophth Drops] Phentermine HCl 30 mg PO DAILY 05/02/22 09/15/22 Neomycin/Poly/Dex Ophth Drops 1 drops LEFTEYE QID #5 ml 09/15/22 [Maxitrol Ophth Drops] - Allergies Allergies/Adverse Reactions: Allergies Allergy/AdvReac Type Severity Reaction Status Date / Time No Known Drug Allergies Allergy Verified 05/02/22 16:35 - Social History Does the pt smoke?: No Smoking Status: Never smoker Does the pt drink ETOH?: Yes Does the pt have substance abuse?: No - Immunizations Immunizations are current?: No PD ED PE NORMAL - Vitals Vital signs reviewed: Yes (Normal) - General General: Alert and oriented X 3, No acute distress, Well developed/nourished - HEENT HEENT: Atraumatic, PERRL, EOMI, Other (3-1/2-year-old Ronaldo De Leon attends a daycare and he has been exposed to a child with [id number]. He has developed small blisters to his hands and around his mouth as well as his lower extremities. He does not have will on his feet. Mother has brought him into the emergency departmen) - Neck Neck: Supple, no meningeal sign, No bony TTP - Respiratory Respiratory: No respiratory distress - Derm Derm: Normal color, Warm and dry, No rash - Extremities Extremities: No deformity, No edema - Neuro Neuro: Alert and oriented X 3, dynamic etching processor 2-12 intact, No motor deficit, No sensory deficit, Normal speech Eye Opening: Spontaneous Motor: Obeys Commands Verbal: Oriented GCS Score: 15 - Psych Psych: Normal mood, Normal affect Results - Vitals Vitals: Vital Signs - 24 hr 09/15/22 18:07 Temperature 35.9 C L Heart Rate 78 Respiratory 20 Rate Blood Pressure 120/73 O2 Saturation 99 Oxygen O2 Source Room air PD Medical Decision Making - ED course Complexity details: considered differential, d/w patient ED course: 42-year-old Karla [facility] with an infection to the left eye has had conjunctivitis in both of her eyes at some point and she has a story consistent with the possibility of contamination from make-up that she had used previously when she had an infection previously. We will prescribe antibiotic drop for the patient. I found the likelyhood of bilateral (infection has been in each eye previously) herpes kerititis to be low. Departure - Departure Disposition: 01 Home, Self Care Clinical Impression: Conjunctivitis Qualifiers: Conjunctivitis type: acute Acute conjunctivitis type: bacterial Laterality: left Qualified Code(s): H10.32 - Unspecified acute conjunctivitis, left eye Condition: Stable Instructions: ED Conjunctivitis Bacterial Follow-Up: NAT THORPE DO [Primary Care Provider] - Prescriptions: Neomycin/Poly/Dex Ophth Drops [Maxitrol Ophth Drops] 1 drops LEFTEYE QID #5 ml Comments: Karla, today it looks like you have a bacterial conjunctivitis in your left conjunctive a. I have E scribed some Maxitrol ophthalmic drops to the [facility] in [place] expectation is rapid improvement with treatment.
--- OUTSIDE RECORDS SUMMARY | 2022-09-15 18:35 | EXTERNAL MEDICAL SUMMARY RPT | Continuity of Care Document ---
Author Name Unknown Address [address] [place] [address] Phone Organization [facility] Address [address] [place] [address] Phone Care Team Providers Care Dials Inspector Name Role Phone Lexi Bueno Unavailable Unavailable Medications date description facility 2022-09-14 00:00 [facility] 2022-09-14 00:00 [facility] Results/Labs test date author facility value unit interpretation Result panel 1 (unknown) (no date) (unknown) (unknown) (no value) (units unknown) (unknown) (unknown) (no date) (unknown) (unknown) [id number] (units unknown) (unknown) (unknown) (no date) (unknown) (unknown) 09/14/22 (units unknown) (unknown) (unknown) (no date) (unknown) (unknown) Age/Sex: 42 / F Date of Service: (units unknown) (unknown) (unknown) (no date) (unknown) (unknown) Allergies (units unknown) (unknown) (unknown) (no date) (unknown) (unknown) [place] [address] (units unknown) (unknown) (unknown) (no date) (unknown) (unknown) Anxiety (units unknown) (unknown) (unknown) (no date) (unknown) (unknown) Attending Dr: Angel Garcia D.O. (units unknown) (unknown) (unknown) (no date) (unknown) (unknown) BMI 31.0-31.9,adult (units unknown) (unknown) (unknown) (no date) (unknown) (unknown) Bronchitis (units unknown) (unknown) (unknown) (no date) (unknown) (unknown) Cancer (units unknown) (unknown) (unknown) (no date) (unknown) (unknown) : 0 Acct:[id number] (units unknown) (unknown) (unknown) (no date) (unknown) (unknown) Depression (units unknown) (unknown) (unknown) (no date) (unknown) (unknown) Dept at . (units unknown) (unknown) (unknown) (no date) (unknown) (unknown) Documented By: Angel Garcia 09/14/22 1527 (units unknown) (unknown) (unknown) (no date) (unknown) (unknown) Draft (units unknown) (unknown) (unknown) (no date) (unknown) (unknown) Ectopic pregna ncy (-1994) (units unknown) (unknown) (unknown) (no date) (unknown) (unknown) Family History (units unknown) (unknown) (unknown) (no date) (unknown) (unknown) Family Practic e Office Visit (units unknown) (unknown) (unknown) (no date) (unknown) (unknown) Father Skin cancer ( units unknown) (unknown) (unknown) (no date) (unknown) (unknown) [facility] (units unknown) (unknown) (unknown) (no date) (unknown) (unknown) Grandfather De ceased Acute alcohol intoxication with alcoholism (units unknown) (unknown) (unknown) (no date) (unknown) (unknown) Grandfather No problems noted. (units unknown) (unknown) (unknown) (no date) (unknown) (unknown) Grandmother De ceased Alzheimer's dementia (units unknown) (unknown) (unknown) (no date) (unknown) (unknown) Grandmother No problems noted. (units unknown) (unknown) (unknown) (no date) (unknown) (unknown) HSV-2 (herpes simplex virus 2) infection (units unknown) (unknown) (unknown) (no date) (unknown) (unknown) Herpes (2017) (units unknown) (unknown) (unknown) (no date) (unknown) (unknown) Insomnia (units unknown) (unknown) (unknown) (no date) (unknown) (unknown) Intake (units unknown) (unknown) (unknown) (no date) (unknown) (unknown) Kidney stones (units unknown) (unknown) (unknown) (no date) (unknown) (unknown) LGSIL (low gra de squamous intraepithelial dysplasia) (units unknown) (unknown) (unknown) (no date) (unknown) (unknown) Loc: [facility] (units unknown) (unknown) (unknown) (no date) (unknown) (unknown) Medical Histor y (Updated 06/12/22 @ 15:36 by Angel Garcia DO) (units unknown) (unknown) (unknown) (no date) (unknown) (unknown) Mother Age: 68 Heart disease (units unknown) (unknown) (unknown) (no date) (unknown) (unknown) Myocardial infarction (units unknown) (unknown) (unknown) (no date) (unknown) (unknown) OCD (obsessive compulsive disorder) (units unknown) (unknown) (unknown) (no date) (unknown) (unknown) PFSH (units unknown) (unknown) (unknown) (no date) (unknown) (unknown) PTSD (post-tra umatic stress disorder) (units unknown) (unknown) (unknown) (no date) (unknown) (unknown) Patient: Karla Sanon MR#: [id number] (units unknown) (unknown) (unknown) (no date) (unknown) (unknown) Pneumonia (units unknown) (unknown) (unknown) (no date) (unknown) (unknown) Reason For Visit (un its unknown) (unknown) (unknown) (no date) (unknown) (unknown) Rh negative st ate in antepartum period (units unknown) (unknown) (unknown) (no date) (unknown) (unknown) Rosacea (1998) (unit s unknown) (unknown) (unknown) (no date) (unknown) (unknown) Seizures (units unknown) (unknown) (unknown) (no date) (unknown) (unknown) Signed By: (units unknown) (unknown) (unknown) (no date) (unknown) (unknown) Sister No prob lems noted. (units unknown) (unknown) (unknown) (no date) (unknown) (unknown) Smoking Status : Never smoker (units unknown) (unknown) (unknown) (no date) (unknown) (unknown) Sneezing and i tchy eyes (units unknown) (unknown) (unknown) (no date) (unknown) (unknown) Social History (unit s unknown) (unknown) (unknown) (no date) (unknown) (unknown) Surgical Histo ry (units unknown) (unknown) (unknown) (no date) (unknown) (unknown) Tachycardia (units unknown) (unknown) (unknown) (no date) (unknown) (unknown) This note may have been all or partially generated using voice recognition (units unknown) (unknown) (unknown) (no date) (unknown) (unknown) Tobacco + Subs tance Use (units unknown) (unknown) (unknown) (no date) (unknown) (unknown) Tobacco Status (unit s unknown) (unknown) (unknown) (no date) (unknown) (unknown) Traumatic brai n injury (units unknown) (unknown) (unknown) (no date) (unknown) (unknown) Unconscious (units unknown) (unknown) (unknown) (no date) (unknown) (unknown) Vaginal delive ry (09/19/19) (units unknown) (unknown) (unknown) (no date) (unknown) (unknown) Visit Reasons: VIDEO: 3 month recheck weight and mood 06 (units unknown) (unknown) (unknown) (no date) (unknown) (unknown) Vomit (units unknown) (unknown) (unknown) (no date) (unknown) (unknown) [place] teeth removed (units unknown) (unknown) (unknown) (no date) (unknown) (unknown) alcohol intake : former (units unknown) (unknown) (unknown) (no date) (unknown) (unknown) aspirin Advers e Reaction (Verified 04/13/22 07:51) (units unknown) (unknown) (unknown) (no date) (unknown) (unknown) cat dander All ergy (Intermediate, Verified 04/13/22 07:51) (units unknown) (unknown) (unknown) (no date) (unknown) (unknown) have occurred. If there are any questions, please contact the Medical Records (units unknown) (unknown) (unknown) (no date) (unknown) (unknown) household memb ers: spouse and children (units unknown) (unknown) (unknown) (no date) (unknown) (unknown) latex [LATEX] Allergy (Intermediate, Verified 04/13/22 07:51) (units unknown) (unknown) (unknown) (no date) (unknown) (unknown) marital status : unmarried,living together (units unknown) (unknown) (unknown) (no date) (unknown) (unknown) may occur. Occasional wrong-word or 'sound-alike' substitutions may have (units unknown) (unknown) (unknown) (no date) (unknown) (unknown) nalbuphine [Fr om Nunilesh] Allergy (Severe, Verified 04/13/22 07:51) (units unknown) (unknown) (unknown) (no date) (unknown) (unknown) number of chil dren: 5 (units unknown) (unknown) (unknown) (no date) (unknown) (unknown) occupational s tatus: employed (units unknown) (unknown) (unknown) (no date) (unknown) (unknown) occurred due t o the inherent limitations of voice recognition software. Please (units unknown) (unknown) (unknown) (no date) (unknown) (unknown) rash (units unknown) (unknown) (unknown) (no date) (unknown) (unknown) read the note carefully and recognize, using context, where these substitutions (units unknown) (unknown) (unknown) (no date) (unknown) (unknown) second hand exposure: No (units unknown) (unknown) (unknown) (no date) (unknown) (unknown) software. Alth ough every effort is made to edit content, vulcanizing press operator errors (units unknown) (unknown) (unknown) (no date) (unknown) (unknown) substance use type: does not use (units unknown) (unknown) Result panel 2 (unknown) (no date) (unknown) (unknown) (no value) (units unknown) (unknown) (unknown) (no date) (unknown) (unknown) (1) BMI 31.0-31.9,adult: (units unknown) (unknown) (unknown) (no date) (unknown) (unknown) (2) Insomnia: (units unknown) (unknown) (unknown) (no date) (unknown) (unknown) (3) Chronic ri ght hip pain: (units unknown) (unknown) (unknown) (no date) (unknown) (unknown) -continue regu lar activity, ROM stretching (units unknown) (unknown) (unknown) (no date) (unknown) (unknown) -follow up 3 m onths, as needed any concerns (units unknown) (unknown) (unknown) (no date) (unknown) (unknown) [id number] (units unknown) (unknown) (unknown) (no date) (unknown) (unknown) 09/14/22 1535 (units unknown) (unknown) (unknown) (no date) (unknown) (unknown) 09/14/22 (units unknown) (unknown) (unknown) (no date) (unknown) (unknown) 1. Discussed d ietary and exercise goals. She would like to restart the (units unknown) (unknown) (unknown) (no date) (unknown) (unknown) 2. She did not like the way the trazodone made her feel. She does use the (units unknown) (unknown) (unknown) (no date) (unknown) (unknown) 3. X-ray in December showed mild arthritic changes only. She does get relief (units unknown) (unknown) (unknown) (no date) (unknown) (unknown) Age/Sex: 42 / F Date of Service: (units unknown) (unknown) (unknown) (no date) (unknown) (unknown) All participan ts + their roles: provider, patient (units unknown) (unknown) (unknown) (no date) (unknown) (unknown) Allergies (units unknown) (unknown) (unknown) (no date) (unknown) (unknown) Allergies: Reviewed (units unknown) (unknown) (unknown) (no date) (unknown) (unknown) [place] [address] (units unknown) (unknown) (unknown) (no date) (unknown) (unknown) Anxiety (units unknown) (unknown) (unknown) (no date) (unknown) (unknown) Assessment + Plan (u nits unknown) (unknown) (unknown) (no date) (unknown) (unknown) Attending Dr: Angel Garcia D.O. (units unknown) (unknown) (unknown) (no date) (unknown) (unknown) BMI 31.0-31.9,adult (units unknown) (unknown) (unknown) (no date) (unknown) (unknown) Bronchitis (units unknown) (unknown) (unknown) (no date) (unknown) (unknown) CHEST: Normal respiratory effort (units unknown) (unknown) (unknown) (no date) (unknown) (unknown) Cancer (units unknown) (unknown) (unknown) (no date) (unknown) (unknown) Cardiovascular : Negative.? (units unknown) (unknown) (unknown) (no date) (unknown) (unknown) Chief Complain t: insomnia (units unknown) (unknown) (unknown) (no date) (unknown) (unknown) Constitutional : Negative.? (units unknown) (unknown) (unknown) (no date) (unknown) (unknown) : 0 Acct:[id number] (units unknown) (unknown) (unknown) (no date) (unknown) (unknown) Depression (units unknown) (unknown) (unknown) (no date) (unknown) (unknown) Dept at . (units unknown) (unknown) (unknown) (no date) (unknown) (unknown) Documented By: Angel Garcia 09/14/22 1527 (units unknown) (unknown) (unknown) (no date) (unknown) (unknown) EYES: nonicteric (un its unknown) (unknown) (unknown) (no date) (unknown) (unknown) Ectopic pregna ncy () (units unknown) (unknown) (unknown) (no date) (unknown) (unknown) Endocrine: Negative.? (units unknown) (unknown) (unknown) (no date) (unknown) (unknown) Family History (units unknown) (unknown) (unknown) (no date) (unknown) (unknown) Family Practic e Office Visit (units unknown) (unknown) (unknown) (no date) (unknown) (unknown) Father Skin cancer ( units unknown) (unknown) (unknown) (no date) (unknown) (unknown) [facility] (units unknown) (unknown) (unknown) (no date) (unknown) (unknown) GENERAL: Well developed, well nourished.? Cooperative with exam.? Patient is in (units unknown) (unknown) (unknown) (no date) (unknown) (unknown) Gastrointestin al: Negative.? (units unknown) (unknown) (unknown) (no date) (unknown) (unknown) Genitourinary: Negative.? (units unknown) (unknown) (unknown) (no date) (unknown) (unknown) Grandfather De ceased Acute alcohol intoxication with alcoholism (units unknown) (unknown) (unknown) (no date) (unknown) (unknown) Grandfather No problems noted. (units unknown) (unknown) (unknown) (no date) (unknown) (unknown) Grandmother De ceased Alzheimer's dementia (units unknown) (unknown) (unknown) (no date) (unknown) (unknown) Grandmother No problems noted. (units unknown) (unknown) (unknown) (no date) (unknown) (unknown) HEAD: Atraumat ic, Normocephalic (units unknown) (unknown) (unknown) (no date) (unknown) (unknown) HSV-2 (herpes simplex virus 2) infection (units unknown) (unknown) (unknown) (no date) (unknown) (unknown) Herpes (2017) (units unknown) (unknown) (unknown) (no date) (unknown) (unknown) I reviewed the patient's Past Medical History, Problem List, Medications and (units unknown) (unknown) (unknown) (no date) (unknown) (unknown) Insomnia type: other insomnia Qualified Code(s): G47.09 - Other (units unknown) (unknown) (unknown) (no date) (unknown) (unknown) Insomnia (units unknown) (unknown) (unknown) (no date) (unknown) (unknown) Intake (units unknown) (unknown) (unknown) (no date) (unknown) (unknown) Kidney stones (units unknown) (unknown) (unknown) (no date) (unknown) (unknown) LGSIL (low gra de squamous intraepithelial dysplasia) (units unknown) (unknown) (unknown) (no date) (unknown) (unknown) Loc: [facility] (units unknown) (unknown) (unknown) (no date) (unknown) (unknown) Location of provider: Clinic (units unknown) (unknown) (unknown) (no date) (unknown) (unknown) Location of pt: home (units unknown) (unknown) (unknown) (no date) (unknown) (unknown) Medical Histor y (Updated 06/12/22 @ 15:36 by Angel Garcia DO) (units unknown) (unknown) (unknown) (no date) (unknown) (unknown) Medications: Reconciled (units unknown) (unknown) (unknown) (no date) (unknown) (unknown) Mother Age: 68 Heart disease (units unknown) (unknown) (unknown) (no date) (unknown) (unknown) Myocardial infarction (units unknown) (unknown) (unknown) (no date) (unknown) (unknown) NECK: Full ran ge of motion, (units unknown) (unknown) (unknown) (no date) (unknown) (unknown) NEURO EXAM: Al ert and oriented x 3.? (units unknown) (unknown) (unknown) (no date) (unknown) (unknown) Neurological: Negative.? (units unknown) (unknown) (unknown) (no date) (unknown) (unknown) Note (units unknown) (unknown) (unknown) (no date) (unknown) (unknown) Note: (units unknown) (unknown) (unknown) (no date) (unknown) (unknown) Notes (units unknown) (unknown) (unknown) (no date) (unknown) (unknown) OCD (obsessive compulsive disorder) (units unknown) (unknown) (unknown) (no date) (unknown) (unknown) Objective: (units unknown) (unknown) (unknown) (no date) (unknown) (unknown) PFSH (units unknown) (unknown) (unknown) (no date) (unknown) (unknown) PSYCH: judgeme nt normal, orientation normal, affect/mood normal and memory (units unknown) (unknown) (unknown) (no date) (unknown) (unknown) PTSD (post-tra umatic stress disorder) (units unknown) (unknown) (unknown) (no date) (unknown) (unknown) Patient is her e to follow up on several issues. (units unknown) (unknown) (unknown) (no date) (unknown) (unknown) Patient: Karla Sanon MR#: [id number] (units unknown) (unknown) (unknown) (no date) (unknown) (unknown) Plan (units unknown) (unknown) (unknown) (no date) (unknown) (unknown) Pneumonia (units unknown) (unknown) (unknown) (no date) (unknown) (unknown) Pt consented t o receive services via telehealth?: Yes (units unknown) (unknown) (unknown) (no date) (unknown) (unknown) Qualifiers: (units unknown) (unknown) (unknown) (no date) (unknown) (unknown) Real-time, synchronous services were performed via: audio + video (units unknown) (unknown) (unknown) (no date) (unknown) (unknown) Reason For Visit (un its unknown) (unknown) (unknown) (no date) (unknown) (unknown) Respiratory: Negative.? (units unknown) (unknown) (unknown) (no date) (unknown) (unknown) Review of Systems: ( units unknown) (unknown) (unknown) (no date) (unknown) (unknown) Rh negative st ate in antepartum period (units unknown) (unknown) (unknown) (no date) (unknown) (unknown) Rosacea (1998) (unit s unknown) (unknown) (unknown) (no date) (unknown) (unknown) SKIN:? No rash es on face (units unknown) (unknown) (unknown) (no date) (unknown) (unknown) Seizures (units unknown) (unknown) (unknown) (no date) (unknown) (unknown) She feels like this is a very rare situation where she would use the (units unknown) (unknown) (unknown) (no date) (unknown) (unknown) She has been t aking phentermine to help with weight loss. She is been off (units unknown) (unknown) (unknown) (no date) (unknown) (unknown) She has some i ssues with chronic right hip pain. An x-ray was done in December (units unknown) (unknown) (unknown) (no date) (unknown) (unknown) She states emperatriz t since we switched over to the trazodone she has had issues with (units unknown) (unknown) (unknown) (no date) (unknown) (unknown) She states emperatriz t with the improved whether she is outside more in his more (units unknown) (unknown) (unknown) (no date) (unknown) (unknown) Signed By: <Electronically signed by Angel Garcia> (units unknown) (unknown) (unknown) (no date) (unknown) (unknown) Signed (units unknown) (unknown) (unknown) (no date) (unknown) (unknown) Sister No prob lems noted. (units unknown) (unknown) (unknown) (no date) (unknown) (unknown) Smoking Status : Never smoker (units unknown) (unknown) (unknown) (no date) (unknown) (unknown) Sneezing and i tchy eyes (units unknown) (unknown) (unknown) (no date) (unknown) (unknown) Social History (including tobacco use status). (units unknown) (unknown) (unknown) (no date) (unknown) (unknown) Social History (unit s unknown) (unknown) (unknown) (no date) (unknown) (unknown) Status: Acute (units unknown) (unknown) (unknown) (no date) (unknown) (unknown) Subjective: (units unknown) (unknown) (unknown) (no date) (unknown) (unknown) Surgical Histo ry (units unknown) (unknown) (unknown) (no date) (unknown) (unknown) Tachycardia (units unknown) (unknown) (unknown) (no date) (unknown) (unknown) This note may have been all or partially generated using voice recognition (units unknown) (unknown) (unknown) (no date) (unknown) (unknown) Time Spent on telephone call only: 15 min (units unknown) (unknown) (unknown) (no date) (unknown) (unknown) Tobacco + Subs tance Use (units unknown) (unknown) (unknown) (no date) (unknown) (unknown) Tobacco Status (unit s unknown) (unknown) (unknown) (no date) (unknown) (unknown) Traumatic brai n injury (units unknown) (unknown) (unknown) (no date) (unknown) (unknown) Unconscious (units unknown) (unknown) (unknown) (no date) (unknown) (unknown) Vaginal delive ry (09/19/19) (units unknown) (unknown) (unknown) (no date) (unknown) (unknown) Visit Reasons: VIDEO: 3 month recheck weight and mood 06 (units unknown) (unknown) (unknown) (no date) (unknown) (unknown) Vital Signs: Reviewed (units unknown) (unknown) (unknown) (no date) (unknown) (unknown) Voice recognit ion software was used in the creation of this note. There may be (units unknown) (unknown) (unknown) (no date) (unknown) (unknown) Vomit (units unknown) (unknown) (unknown) (no date) (unknown) (unknown) Were services performed via telephone only?: No (units unknown) (unknown) (unknown) (no date) (unknown) (unknown) [place] teeth removed (units unknown) (unknown) (unknown) (no date) (unknown) (unknown) alcohol intake : former (units unknown) (unknown) (unknown) (no date) (unknown) (unknown) around frequen tly, stretches, takes a leave the pain is much better. When she (units unknown) (unknown) (unknown) (no date) (unknown) (unknown) aspirin Advers e Reaction (Verified 04/13/22 07:51) (units unknown) (unknown) (unknown) (no date) (unknown) (unknown) cat dander All ergy (Intermediate, Verified 04/13/22 07:51) (units unknown) (unknown) (unknown) (no date) (unknown) (unknown) have occurred. If there are any questions, please contact the Medical Records (units unknown) (unknown) (unknown) (no date) (unknown) (unknown) household memb ers: spouse and children (units unknown) (unknown) (unknown) (no date) (unknown) (unknown) insomnia (units unknown) (unknown) (unknown) (no date) (unknown) (unknown) latex [LATEX] Allergy (Intermediate, Verified 04/13/22 07:51) (units unknown) (unknown) (unknown) (no date) (unknown) (unknown) lorazepam intermittently only. Her medication usage report is consistent with (units unknown) (unknown) (unknown) (no date) (unknown) (unknown) lorazepam. It chest off her mind and let her get restful sleep. Her medication (units unknown) (unknown) (unknown) (no date) (unknown) (unknown) marital status : unmarried,living together (units unknown) (unknown) (unknown) (no date) (unknown) (unknown) may occur. Occasional wrong-word or 'sound-alike' substitutions may have (units unknown) (unknown) (unknown) (no date) (unknown) (unknown) medications fo r about a month now. Her weight has been stable at 187. She is (units unknown) (unknown) (unknown) (no date) (unknown) (unknown) nalbuphine [Fr om Nubain] Allergy (Severe, Verified 04/13/22 07:51) (units unknown) (unknown) (unknown) (no date) (unknown) (unknown) next day drows iness. She also feels like she can not turn her mind off as well. (units unknown) (unknown) (unknown) (no date) (unknown) (unknown) no apparent distress. (units unknown) (unknown) (unknown) (no date) (unknown) (unknown) normal (units unknown) (unknown) (unknown) (no date) (unknown) (unknown) number of chil dren: 5 (units unknown) (unknown) (unknown) (no date) (unknown) (unknown) occupational s tatus: employed (units unknown) (unknown) (unknown) (no date) (unknown) (unknown) occurred due t o the inherent limitations of voice recognition software. Please (units unknown) (unknown) (unknown) (no date) (unknown) (unknown) phentermine. N o previous adverse side effects. (units unknown) (unknown) (unknown) (no date) (unknown) (unknown) rash (units unknown) (unknown) (unknown) (no date) (unknown) (unknown) read the note carefully and recognize, using context, where these substitutions (units unknown) (unknown) (unknown) (no date) (unknown) (unknown) referral to [facility] for an injection. She would like to hold off. If (units unknown) (unknown) (unknown) (no date) (unknown) (unknown) second hand exposure: No (units unknown) (unknown) (unknown) (no date) (unknown) (unknown) she becomes mo re limited by her hip she will reconsider. (units unknown) (unknown) (unknown) (no date) (unknown) (unknown) side effects f rom the phentermine. She would like to restart the medication. (units unknown) (unknown) (unknown) (no date) (unknown) (unknown) sits still or his inactive the pain worsens again. (units unknown) (unknown) (unknown) (no date) (unknown) (unknown) software. Alth ough every effort is made to edit content, vulcanizing press operator errors (units unknown) (unknown) (unknown) (no date) (unknown) (unknown) substance use type: does not use (units unknown) (unknown) (unknown) (no date) (unknown) (unknown) this. Continue to use lorazepam as needed. (units unknown) (unknown) (unknown) (no date) (unknown) (unknown) tired througho ut the day and is sleeping a little bit better but there are times (units unknown) (unknown) (unknown) (no date) (unknown) (unknown) typographical errors as a result. (units unknown) (unknown) (unknown) (no date) (unknown) (unknown) uses consisten t with this. (units unknown) (unknown) (unknown) (no date) (unknown) (unknown) where she need s a little help asleep. Lorazepam does work much better for her. (units unknown) (unknown) (unknown) (no date) (unknown) (unknown) which showed m ild arthritic changes only. She states that when she moves (units unknown) (unknown) (unknown) (no date) (unknown) (unknown) with Aleve and stretching. She will continue that for now. Discussed possible (units unknown) (unknown) (unknown) (no date) (unknown) (unknown) working to red uce her portion sizes, increase her physical activity. No adverse (units unknown) (unknown) Social History date description facility 2022-09-14 00:00 Never smoked tobacco (finding) [facility]
[2022-09-15 19:17] VITALS: BP 117/79
== END 2022-09-15 19:16 | disposition home or self-care (01) ==
LOC: ED 18:04
DX: H10.32 Unspecified acute conjunctivitis, left eye (principal)
CPT/HCPCS: 99281; 99283

== ENCOUNTER 2022-11-06 10:40 | Emergency (ER) | payer MEDICAID ==
[2022-11-06 11:03] VITALS: BP 120/76
--- OUTSIDE RECORDS SUMMARY | 2022-11-06 11:03 | EXTERNAL MEDICAL SUMMARY RPT | Continuity of Care Document ---
Author Name Unknown Address [address] [place] [address] Phone Organization [facility] Address [address] [place] [address] Phone Care Team Providers Care Hand Coper Name Role Phone Lexi Bueno Unavailable Unavailable Medications date description facility 2022-09-14 00:00 [facility] 2022-09-14 00:00 [facility] Results/Labs test date facility value unit notes Social History date description facility 2022-09-14 00:00 Never smoked tobacco ([facility]) [facility]
[2022-11-06] MEDS ORDERED: KETOROLAC 30 MG/ML VIAL IM STA (11:41)
[2022-11-06] MEDS ORDERED: ACETAMINOPHEN 325 MG TABLET PO STA (11:41)
[2022-11-06] MEDS ORDERED: CYCLOBENZAPRINE 10 MG TABLET PO STA (11:41)
[2022-11-06] MEDS ORDERED: LIDOCAINE PATCH 5% TOP STA (11:41)
--- NOTE | 2022-11-06 11:56 | ED Physician Documentation ---
PD HPI BACK PAIN - Stated complaint Stated Complaint: BACK INJ - Chief complaint Chief Complaint: Back Pain - History obtained from History obtained from: Patient - Treatment prior to arrival Treatment prior to arrival: Patient presents from home by private vehicle for upper right back spasm. 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 No medications taken prior to arrival. Patient reports pain in her right upper back. No other complaints Review of Systems Constitutional: denies: Fever, Chills Musculoskeletal: reports: Back pain. denies: Neck pain, Extremity pain, Joint pain, Extremity swelling, Joint swelling Neurologic: denies: Generalized weakness, Focal weakness, Numbness, Syncope, Headache, Head injury PD PAST MEDICAL HISTORY - Past Medical History Cardiovascular: None Respiratory: None Neuro: Headaches Endocrine/Autoimmune: None GI: None SIGNALER: None : None HEENT: Chronic vision loss Psych: None Musculoskeletal: None Derm: Rosacea - Past Surgical History Past Surgical History: Yes /SIGNALER: Tubal ligation - Present Medications Home Medications: Ambulatory Orders Medication Instructions Recorded Confirmed Minocycline HCl [Solodyn] 50 mg PO DAILY 05/02/22 11/06/22 Cyclobenzaprine [Flexeril] 10 mg PO TID PRN #20 tablet 11/06/22 Fluoxetine HCl [Prozac] 20 mg PO DAILY 11/06/22 11/06/22 Lidocaine Patch 5% [Lidoderm Patch] 1 each TOP DAILY #10 patch 11/06/22 - Allergies Allergies/Adverse Reactions: Allergies Allergy/AdvReac Type Severity Reaction Status Date / Time No Known Drug Allergies Allergy Verified 05/02/22 16:35 - Social History Does the pt smoke?: No Smoking Status: Never smoker Does the pt drink ETOH?: Yes Does the pt have substance abuse?: No - Immunizations Immunizations are current?: No PD ED PE NORMAL - Vitals Vital signs reviewed: Yes - General General: Alert and oriented X 3, Well developed/nourished, Other (uncomfortable) - HEENT HEENT: Atraumatic - Neck Neck: Supple, no meningeal sign - Cardiac Cardiac: RRR, Strong equal pulses - Respiratory Respiratory: No respiratory distress, Clear bilaterally - Back Back: No CVA TTP, No spinal TTP, Other (no midline tenderness. 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 Palpable muscle spasm paraspinal thoracic back. No midline tenderness, no neurologic deficits. No indication for imaging. Patient given nonnarcotic analgesia and recommended stretching for muscle spasm and back pain. Nonnarcotic medications sent to pharmacy. L&I form filled out. Note for work provided. Departure - Departure Disposition: 01 Home, Self Care Clinical Impression: Back pain Qualifiers: Back pain location: thoracic back pain Chronicity: acute Back pain laterality: right Qualified Code(s): M54.6 - Pain in thoracic spine Back strain Qualifiers: Encounter type: initial encounter Qualified Code(s): S39.012A - Strain of muscle, fascia and tendon of lower back, initial encounter Condition: Stable Instructions: ED Back Care Tips, ED Spasm Back No Trauma Prescriptions: Cyclobenzaprine [Flexeril] 10 mg PO TID PRN #20 tablet PRN Reason: Spasms Lidocaine Patch 5% [Lidoderm Patch] 1 each TOP DAILY #10 patch Discharge Date/Time: 11/06/22 12:08
== END 2022-11-06 12:08 | disposition home or self-care (01) ==
LOC: ED 10:40
DX: S39.012A Strain of muscle, fascia and tendon of lower back, initial encounter (principal); X50.0XXA Overexertion from strenuous movement or load, initial encounter; Y93.F2 Activity, caregiving, lifting; Y92.199 Unspecified place in other specified residential institution as the place of occurrence of the external cause; Y99.0 Civilian activity done for income or pay
CPT/HCPCS: 1040M; 96372; 99283; A9270

== ENCOUNTER 2023-08-16 19:27 | Emergency (ER) | payer MEDICAID, OTHER ==
[2023-08-16 19:39] VITALS: BP 122/84; O2SAT 100
[2023-08-16] MEDS: PROPARACAINE 0.5% OPHTH DROPS 15 ML LEFTEYE STA (21:05)
--- NOTE | 2023-08-16 21:25 | ED Physician Documentation ---
PD HPI HEENT - Stated complaint Stated Complaint: LT EYE PX/REDNESS - Chief complaint Chief Complaint: Heent - History obtained from History obtained from: Patient - Additional information Additional information: The patient comes to the emergency department chief complaint of left eye pain and redness for the last several days. She states it started as a feeling of just being "irritated" but now it has become more noticeable. The patient has had some mucus discharge. No visual changes. No foreign material in her eye. No other complaints at this time. 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 : None HEENT: Chronic vision loss Psych: Depression, Anxiety Musculoskeletal: None Derm: Rosacea - Past Surgical History Past Surgical History: Yes /DELI MANAGER: Tubal ligation - Present Medications Home Medications: Ambulatory Orders Medication Instructions Recorded Confirmed Minocycline HCl [Solodyn] 50 mg PO DAILY 05/02/22 11/06/22 Cyclobenzaprine [Flexeril] 10 mg PO TID PRN #20 tablet 11/06/22 Fluoxetine HCl [Prozac] 20 mg PO DAILY 11/06/22 11/06/22 Lidocaine Patch 5% [Lidoderm Patch] 1 each TOP DAILY #10 patch 11/06/22 Gentamicin 0.3% Ophth Drops 1 drops OPTH TID 7 Days #5 ml 08/16/23 [Garamycin] - Allergies Allergies/Adverse Reactions: Allergies Allergy/AdvReac Type Severity Reaction Status Date / Time No Known Drug Allergies Allergy Verified 08/16/23 19:35 - Social History Does the pt smoke?: No Smoking Status: Never smoker Does the pt drink ETOH?: Yes Does the pt have substance abuse?: No - Immunizations Immunizations are current?: No PD ED PE NORMAL - Vitals Vital signs reviewed: Yes - General General: Alert and oriented X 3, No acute distress, Well developed/nourished - HEENT HEENT: Atraumatic, PERRL, EOMI, Moist mucous membranes, Other (Moderate conjunctival injection left eye. Fluorescein exam negative. No foreign body.) - Neck Neck: Supple, no meningeal sign - Respiratory Respiratory: No respiratory distress - Derm Derm: Normal color, Warm and dry, No rash - Extremities Extremities: No deformity - Neuro Neuro: Other (Alert, grossly intact.) - Psych Psych: Normal mood, Normal affect Results - Vitals Vitals: Oxygen O2 Source Room air PD Medical Decision Making - ED course Complexity details: considered differential, d/w patient ED course: The patient's symptoms and exam findings were consistent with conjunctivitis. She was given a prescription for antibiotic drops. We have discussed home management of the symptoms as well as usual indications for follow-up and return. Departure - Departure Disposition: 01 Home, Self Care Clinical Impression: Conjunctivitis Qualifiers: Conjunctivitis type: acute Acute conjunctivitis type: unspecified Laterality: left Qualified Code(s): H10.32 - Unspecified acute conjunctivitis, left eye Condition: Stable Instructions: ED Conjunctivitis Nonspecific Prescriptions: Gentamicin 0.3% Ophth Drops [Garamycin] 1 drops OPTH TID 7 Days #5 ml Comments: Your eye is inflamed but there is no evidence of ulceration or foreign material in the eye. We will start you on antibiotic drops for presumed pinkeye. A prescription for these has been electronically transmitted to the [facility] pharmacy in [place]. Please pick them up and start taking them in the morning. You may also use ibuprofen and Tylenol as needed for the discomfort. Please do not put any contact lenses in the eye until the infection has been treated. Ideally, you should not use the same contact lens that you used while your eye was infected, as you can risk restarting the infection again. Please follow-up with your email marketing specialist for further concerns. Forms: PCP List Discharge Date/Time: 08/16/23 21:44
== END 2023-08-16 21:44 | disposition home or self-care (01) ==
LOC: ED 19:27
DX: H10.32 Unspecified acute conjunctivitis, left eye (principal); Z79.899 Other long term (current) drug therapy
CPT/HCPCS: 99283; J3490